=== PATIENT | male | born 1955 | race Caucasian/White ===

== ENCOUNTER → 2019-07-02 | Outpatient (CLI) | payer OTHER, MEDICARE ==
[2019-07-02 09:16] LABS: C-REACTIVE PROTEIN QUANT < 0.2 mg/dL (0-0.5); FREE T4 (FREE THYROXINE) 0.6 ng/dL (0.6-1.6); THYROID STIMULATING HORMONE 2.97 uIu/mL (0.34-4.82)
[2019-07-03 07:34] LABS: CORTISOL (SERUM) 8.9 ug/dL (.); FOLATE (FOLIC ACID) 3.8 ng/mL (>3.0)
[2019-07-03 10:20] LABS: ANTI NUCLEAR AB WITH REFLEX Positive (Negative)
[2019-07-03 12:13] LABS: HEMOGLOBIN A1C 5.7 % (4.8-5.6)
[2019-07-06 12:47] LABS: ALBUMIN 3.9 g/dL (3.4-4.8); BILIRUBIN,DIRECT 0.1 mg/dL (0.0-0.3); CALCIUM 9.4 mg/dL (8.4-11.0); CREATININE 1.07 mg/dL (0.55-1.30); POTASSIUM 3.8 mmol/L (3.5-5.1); TOTAL BILIRUBIN 0.5 mg/dL (0.0-1.0)
== END | disposition home or self-care (01) ==
LOC: SLB 07:48
PROVIDERS: ATTEND Family Medicine
DX: E55.9 Vitamin D deficiency, unspecified (principal); E29.8 Other testicular dysfunction; E03.9 Hypothyroidism, unspecified; E53.9 Vitamin B deficiency, unspecified; E51.9 Thiamine deficiency, unspecified; E29.9 Testicular dysfunction, unspecified; E50 Vitamin A deficiency
CPT/HCPCS: 36415; 80048; 80061; 80076; 82306; 82533; 82607; 82627; 82746; 83036; 84436; 84439; 84443-TC; 85651-TC; 86038; 86140